=== PATIENT | female | born 1960 | race Two or more races ===

== ENCOUNTER 2024-10-03 17:02 | Emergency (ER) | payer OTHER ==
[~2024-10-03] VITALS: Ht 157.5 cm; Wt 47.2 kg
[2024-10-03] MEDS ORDERED: 0.9 % SODIUM CHLORIDE 1,000 ML IV SCH (18:30)
[2024-10-03 19:00] LABS: HEMATOCRIT 36.3 % (36.0-45.00); HEMOGLOBIN 11.3 g/dL (12.0-15.00); MEAN CELL VOLUME 83.7 fL (80.00-100.00); MEAN CORPUSCULAR HEMOGLOBIN 26.1 pg (27.00-32.0); MEAN CORPUSCULAR HGB CONC 31.2 g/dl (32.0-36.0); PLATELET COUNT 235 K/uL (150-450); RED BLOOD COUNT 4.34 M/uL (4.00-6.00); RED CELL DISTRIBUTION WIDTH 14.5 % (11.5-14.5)
[2024-10-03 19:31] LABS: ALKALINE PHOSPHATASE 100 U/L (50-136); ALT/SGPT 29 U/L (12-78); AMYLASE 93 U/L (25-115); ANION GAP 5 (10.0-20.0); AST/SGOT 59 U/L (15-37); BILIRUBIN TOTAL 0.31 mg/dL (0.3-1.2); BLOOD UREA NITROGEN 8 mg/dL (7-18); BUN CREA RATIO 12 (7.0-25.0); CALCIUM 8.6 mg/dL (8.5-10.1); CARBON DIOXIDE 28 mEq/L (21-32); CHLORIDE 108 mmol/L (98-107); CREATININE SERUM 0.69 mg/dL (0.55-1.02); GFR 85.65; GLOBULINA 8.6 G/DL (2.4-3.5); GLUCOSE FASTING 97 mg/dL (65-100); LIPASE 33 U/L (13-75); OSMOLALITY SERUM 270 MOSM/KG (275-295); SODIUM 136 mmol/L (136-145)
[2024-10-03 19:34] LABS: TOTAL PROTEIN 11.6 gm/dL (6.4-8.2)
[2024-10-03 22:37] LABS: BILIRUBIN,CONJUGATED < 0.10 mg/dL (0.0-0.2); BILIRUBIN,UNCONJUGATED 0.21 mg/dL (0.0-0.6)
[2024-10-03 22:38] LABS: POTASSIUM 5.42 mEq/L (3.5-5.1)
[2024-10-03] MEDS ORDERED: DOLOGEN CAPLET1 EACH PO (23:44)
[2024-10-03] MEDS ORDERED: PEPCID AC20 MG PO (23:44)
[2024-10-03] MEDS ORDERED: ONDANSETRON ODT8 MG PO (23:44)
== END 2024-10-04 00:08 | disposition home or self-care (01) ==
LOC: ER 17:04
PROVIDERS: General Practice
DX: R41.0 Disorientation, unspecified (principal); B20 Human immunodeficiency virus [HIV] disease

== ENCOUNTER → 2024-11-21 | Emergency (ER) | payer OTHER ==
[~2024-11-21] VITALS: Ht 160 cm; Wt 47.6 kg
[~2024-11-21] MED LIST: 0.9 % SODIUM CHLORIDE 1,000 ML IV ONE; ASPIRIN 325 MG TABLET PO ONE; DOLOGEN CAPLET1 EACH PO; LOSARTAN POTASS25 MG PO; NEURONTIN800 MG PO; ONDANSETRON ODT8 MG PO; PEPCID AC20 MG PO
[2024-11-21 16:39] LABS: HEMOGLOBIN 11.5 g/dL (12.0-15.00); MEAN CELL VOLUME 82.7 fL (80.00-100.00); MEAN CORPUSCULAR HEMOGLOBIN 28.1 pg (27.00-32.0); MEAN CORPUSCULAR HGB CONC 33.9 g/dl (32.0-36.0); PLATELET COUNT 290 K/uL (150-450); RED BLOOD COUNT 4.11 M/uL (4.00-6.00); RED CELL DISTRIBUTION WIDTH 14.8 % (11.5-14.5)
[2024-11-21 17:12] LABS: INR 1.1; PARTIAL THROMBOPLASTIN TIME 26.7 SECONDS (22.0-34.0); PROTHROMBIN TIME 11.9 SECONDS (9.0-11.5)
[2024-11-21 17:19] LABS: ALBUMIN 3.1 gm/dL (3.4-5.0); BILIRUBIN TOTAL 0.46 mg/dL (0.3-1.2); CALCIUM 9.4 mg/dL (8.5-10.1); CREATININE SERUM 0.73 mg/dL (0.55-1.02); GFR 80.26; GLOBULINA 8.4 G/DL (2.4-3.5); POTASSIUM 3.29 mEq/L (3.5-5.1)
[2024-11-21 17:20] LABS: TOTAL PROTEIN 11.5 gm/dL (6.4-8.2)
[2024-11-21 17:55] LABS: URINE APPEARANCE Clear; URINE BILIRRUBIN Negative (NEGATIVE); URINE BLOOD Moderate; URINE COLOR Yellow; URINE GLUCOSE Negative (NEGATIVE); URINE LEUKOCYTE Negative; URINE NITRATE Negative; URINE UROBILINOGEN 0.2 E.U./dl
[2024-11-21 17:56] LABS: URINE BACTERIA 45.2 uL (0.0-1933); URINE CAST 4.27 uL (0.0-1.40); URINE EPITHELIAL CELLS 8.5 uL (0.0-38.8); URINE RBC 42.4 uL (0.0-20.8); URINE WBC 3.6 uL (0.0-23.2)
[2024-11-21 18:12] LABS: URINE KETONE 40 (NEGATIVE); URINE PROTEIN 100 (NEGATIVE)
[2024-11-21 18:39] LABS: ABG PH 7.496 (7.35-7.45); ABG PO2 78.9 mmHg (80-100); ABG pCO2 30.3 mmHg (35-45); BASE EXCESS 0.7 mmol/l; BICARBONATE 22.9 mmol/l (23-25); SaO2 96.7 %; Tco2 23.8 mmol/l
[2024-11-21 19:03] LABS: allen test SATISFACTORY; o2 21 %; puncture site RADIAL RIGHT
== END | disposition home or self-care (01) ==
LOC: ER 15:12
PROVIDERS: General Practice
DX: R07.89 Other chest pain (principal); I10 Essential (primary) hypertension; Z20.822 Contact with and (suspected) exposure to COVID-19